=== PATIENT | male | born 1975 | race Caucasian/White ===

== ENCOUNTER 2020-02-04 16:42 | Inpatient (IN) | payer BC, OTHER ==
[2020-02-04] MEDS ORDERED: Sodium Chloride 0.9% 10 ML Syringe FLUSH PRN (17:09)
[2020-02-04] MEDS ORDERED: Sodium Chloride 0.9% 2.5 ML Syringe FLUSH PRN (17:09)
[2020-02-04] MEDS: Sodium Chloride 0.9% 1,000 ML IV ONE (17:20)
--- NOTE | 2020-02-04 17:21 | EDM.PDOC ---
ED HPI GENERAL MEDICAL PROBLEM - General Chief Complaint: Skin Complaint Stated Complaint: POSSIBLE INFECTION DUAL INNER THIGHS Time Seen by Provider: 02/04/20 17:15 Source of Information: Reports: Patient History Limitations: Reports: No Limitations - History of Present Illness INITIAL COMMENTS - FREE TEXT/NARRATIVE: HISTORY AND PHYSICAL: History of present illness: Patient is a 44-year-old male who presents to the emergency room with complaints of an infection to bilateral inner thighs. Approximately 3 days ago he noted sporadic bites to his upper extremities, torso and legs -he was concerned as he does sleep in a motel. After getting out of the shower yesterday he was scratching his inner thighs and feels like his fingernail got caught on his skin. Immediately started having redness, soft tissue swelling and blistering which is progressively gotten worse into today. He has attempted to make his own bandages as the blisters on his inner thighs are weeping. Increased pain with weightbearing and ambulation. This redness does not go into the scrotum, genitalia or rectum. He went to a walk-in clinic who diagnosed him with scabies and started him on Keflex yesterday. The redness/ blistering started BEFORE he started taking the antibiotic. Patient denies any fever, chills, headache, change in vision, syncope or near syncope. Denies any chest pain, back pain, shortness of breath or cough. Denies any abdominal pain, nausea, vomiting, diarrhea, constipation or dysuria. Has not noted any blood in urine or stool. Patient has been eating and drinking appropriately. Review of systems: As per history of present illness and below otherwise all systems reviewed and negative. Past medical history: As per history of present illness and as reviewed below otherwise noncontributory. Surgical history: As per history of present illness and as reviewed below otherwise noncontributory. Social history: See social history for further information Family history: As per history of present illness and as reviewed below otherwise noncontributory. Physical exam: General: Well-developed and well-nourished 44-year-old male. Alert and oriented. Nontoxic-appearing and in no acute distress. HEENT: Atraumatic, normocephalic, pupils equal and reactive bilaterally, negative for conjunctival pallor or scleral icterus, mucous membranes moist, TMs normal bilaterally, throat clear, neck supple, nontender, trachea midline. No drooling or trismus noted. No meningeal signs. No hot potato voice noted. Lungs: Clear to auscultation, breath sounds equal bilaterally, chest nontender. Heart: S1S2, regular rhythm - tachycardic, without overt murmur Abdomen: Soft, nondistended, nontender. Negative for masses or hepatosplenomegaly. Negative for costovertebral tenderness. Pelvis: Stable nontender. Genitourinary: No soft tissue swelling, redness or lesions. Skin: Patient has some pinpoint puncates sporadically throughout the body. The main area of concern is the bilateral medial thighs which are erythematous with some blistering that are honey crusted/weeping. Not hot to the touch but tender. Non-indurated and nonfluctuant. Otherwise remaining skin is intact, warm, dry. Extremities: Atraumatic, moves all extremities per self without difficulty or deficits, negative for cords or calf pain. Neurovascular unremarkable. Neuro: Awake, alert, oriented. Cranial nerves II through XII unremarkable. Cerebellum unremarkable. Motor and sensory unremarkable throughout. Exam nonfocal. Notes: Wound care was done to bilateral thighs, the weeping was cleansed. Nonstick dressings applied. Patient is aware of lab work and the likelihood of him needing to be admitted for IV antibiotics and continued monitoring. He is agreeable to plan of care. Dr Patino was consulted on this case and he is agreeable to keeping patient for further care and management. Patient is aware. VSS. Diagnostics: CBC, CMP, lactic with reflex, blood cultures Therapeutics: IV fluid, vancomycin, Ancef Impression: Cellulitis, bilateral thigh Plan: Admission to Med/Surg Definitive disposition and diagnosis as appropriate pending reevaluation and review of above. Duration: Day(s): bilateral leg Pain Score (Numeric/FACES): 8 - Related Data Allergies Allergy/AdvReac Type Severity Reaction Status Date / Time No Known Allergies Allergy Verified 02/04/20 17:20 ED ROS GENERAL - Review of Systems Review Of Systems: Comprehensive ROS is negative, except as noted in HPI. ED EXAM, SKIN/RASH Exam: See Below (See dictation) Course - Vital Signs Last Recorded V/S: Last Vital Signs Temp 97.4 F 02/04/20 17:10 Pulse 139 H 02/04/20 17:10 Resp 18 02/04/20 17:10 BP 136/87 02/04/20 17:10 Pulse Ox 95 02/04/20 17:10 - Orders/Labs/Meds Orders: Active Orders 24 hr Category Date Time Status Admission Status [Patient Status] [ADT] Stat ADT 02/04/20 18:06 Active EKG 12 Lead [EKG Documentation Completion] [RC] STAT Care 02/04/20 17:21 Active CULTURE BLOOD [BC] Stat Lab 02/04/20 17:12 Received CULTURE BLOOD [BC] Stat Lab 02/04/20 17:22 Received Sodium Chloride 0.9% [Normal Saline] 1,000 ml Med 02/04/20 17:09 Active IV STAT Sodium Chloride 0.9% [Normal Saline] 1,000 ml Med 02/04/20 17:44 Active IV STAT Sodium Chloride 0.9% [Saline Flush] Med 02/04/20 17:09 Active 10 ml FLUSH ASDIRECTED PRN Sodium Chloride 0.9% [Saline Flush] Med 02/04/20 17:09 Active 2.5 ml FLUSH ASDIRECTED PRN Vancomycin 1 gm Med 02/04/20 17:27 Active Sodium Chloride 0.9% [Normal Saline (AdvBag)] 250 ml IV ONETIME Blood Culture x2 Reflex Set [OM.PC] Stat Oth 02/04/20 17:00 Ordered Saline Lock Insert [OM.PC] Stat Oth 02/04/20 17:09 Ordered Medication Orders Sodium Chloride (Normal Saline) 1,000 mls @ 999 mls/hr IV STAT ONE Stop: 02/04/20 18:09 Last Admin: 02/04/20 17:20 Dose: 999 mls/hr Vancomycin HCl 1 gm/ Sodium (Chloride) 250 mls @ 166 mls/hr IV ONETIME ONE Stop: 02/04/20 18:57 Sodium Chloride (Normal Saline) 1,000 mls @ 125 mls/hr IV STAT ONE Stop: 02/05/20 01:43 Sodium Chloride (Saline Flush) 10 ml FLUSH ASDIRECTED PRN PRN Reason: Keep Vein Open Last Admin: 02/04/20 17:26 Dose: 10 ml Sodium Chloride (Saline Flush) 2.5 ml FLUSH ASDIRECTED PRN PRN Reason: Keep Vein Open Last Admin: 02/04/20 17:26 Dose: 2.5 ml Labs: Laboratory Tests 02/04/20 02/04/20 02/04/20 Range/Units 17:12 17:12 17:12 WBC 10.58 (4.0-11.0) K/uL RBC 6.56 H (4.50-5.90) M/uL Hgb 20.4 H (13.0-17.0) g/dL Hct 59.0 H (38.0-50.0) % MCV 89.9 (80.0-98.0) fL MCH 31.1 (27.0-32.0) pg MCHC 34.6 (31.0-37.0) g/dL RDW Std Deviation 44.3 (28.0-62.0) fl RDW Coeff of Karlie 14 (11.0-15.0) % Plt Count 189 (150-400) K/uL MPV 9.80 (7.40-12.00) fL Neut % (Auto) 67.8 (48.0-80.0) % Lymph % (Auto) 20.8 (16.0-40.0) % [place] % (Auto) 6.0 (0.0-15.0) % Eos % (Auto) 5.1 (0.0-7.0) % Baso % (Auto) 0.3 (0.0-1.5) % Neut # (Auto) 7.2 H (1.4-5.7) K/uL Lymph # (Auto) 2.2 (0.6-2.4) K/uL [place] # (Auto) 0.6 (0.0-0.8) K/uL Eos # (Auto) 0.5 (0.0-0.7) K/uL Baso # (Auto) 0.0 (0.0-0.1) K/uL Nucleated RBC % 1.7 /100WBC Nucleated RBCs # 0 K/uL Lactate 1.3 (0.20-2.00) mmol/L Sodium 136 (136-148) mmol/L Potassium 3.5 (3.5-5.1) mmol/L Chloride 99 (98-107) mmol/L Carbon Dioxide 29.2 (21.0-32.0) mmol/L BUN 13 (7.0-18.0) mg/dL Creatinine 1.3 (0.8-1.3) mg/dL Est Cr Clr Drug Dosing 74.87 mL/min Estimated GFR (MDRD) 60.0 ml/min Glucose 111 H (74-106) mg/dL Calcium 8.3 L (8.5-10.1) mg/dL Total Bilirubin 0.9 (0.2-1.0) mg/dL AST 27 (15-37) IU/L ALT 63 (14-63) IU/L Alkaline Phosphatase 112 (46-116) U/L Total Protein 6.6 (6.4-8.2) g/dL Albumin 3.8 (3.4-5.0) g/dL Globulin 2.8 (2.6-4.0) g/dL Albumin/Globulin Ratio 1.4 (0.9-1.6) Meds: Medications Generic Name Dose Route Start Last Admin Trade Name Freq PRN Reason Stop Dose Admin Sodium Chloride 1,000 mls @ 999 mls/hr 02/04/20 17:09 02/04/20 17:20 Normal Saline IV 02/04/20 18:09 999 mls/hr STAT ONE Administration Vancomycin HCl 1 gm/ Sodium 250 mls @ 166 mls/hr 02/04/20 17:27 Chloride IV 02/04/20 18:57 ONETIME ONE Sodium Chloride 1,000 mls @ 125 mls/hr 02/04/20 17:44 Normal Saline IV 02/05/20 01:43 STAT ONE Sodium Chloride 10 ml 02/04/20 17:09 02/04/20 17:26 Saline Flush FLUSH 10 ml ASDIRECTED PRN Administration Keep Vein Open Sodium Chloride 2.5 ml 02/04/20 17:09 02/04/20 17:26 Saline Flush FLUSH 2.5 ml ASDIRECTED PRN Administration Keep Vein Open Discontinued Medications Generic Name Dose Route Start Last Admin Trade Name Freq PRN Reason Stop Dose Admin Cefazolin Sodium/Dextrose 1 gm 50 mls @ 100 mls/hr 02/04/20 17:27 02/04/20 17 :39 / Premix IV 02/04/20 17:56 100 mls/hr ONETIME ONE Administration Departure - Departure Time of Disposition: 18:11 Disposition: Refer to Observation Clinical Impression: Bilateral lower leg cellulitis - Discharge Information Referrals: PCP,None [Primary Care Provider] - Forms: ED Department Discharge Sepsis Event Note - Focused Exam Vital Signs: Vital Signs Temp Pulse Resp BP Pulse Ox 02/04/20 17:10 97.4 F 139 H 18 136/87 95 Date Exam was Performed: 02/04/20 Time Exam was Performed: 18:08 - My Orders Last 24 Hours: My Active Orders 02/04/20 17:00 Blood Culture x2 Reflex Set [OM.PC] Stat 02/04/20 17:09 Sodium Chloride 0.9% [Normal Saline] 1,000 ml IV STAT Sodium Chloride 0.9% [Saline Flush] 10 ml FLUSH ASDIRECTED PRN Sodium Chloride 0.9% [Saline Flush] 2.5 ml FLUSH ASDIRECTED PRN Saline Lock Insert [OM.PC] Stat 02/04/20 17:12 CULTURE BLOOD [BC] Stat 02/04/20 17:21 EKG 12 Lead [EKG Documentation Completion] [RC] STAT 02/04/20 17:22 CULTURE BLOOD [BC] Stat 02/04/20 17:27 Vancomycin 1 gm Sodium Chloride 0.9% [Normal Saline (AdvBag)] 250 ml IV ONETIME 02/04/20 17:44 Sodium Chloride 0.9% [Normal Saline] 1,000 ml IV STAT 02/04/20 18:06 Admission Status [Patient Status] [ADT] Stat - Assessment/Plan Last 24 Hours: My Active Orders 02/04/20 17:00 Blood Culture x2 Reflex Set [OM.PC] Stat 02/04/20 17:09 Sodium Chloride 0.9% [Normal Saline] 1,000 ml IV STAT Sodium Chloride 0.9% [Saline Flush] 10 ml FLUSH ASDIRECTED PRN Sodium Chloride 0.9% [Saline Flush] 2.5 ml FLUSH ASDIRECTED PRN Saline Lock Insert [OM.PC] Stat 02/04/20 17:12 CULTURE BLOOD [BC] Stat 02/04/20 17:21 EKG 12 Lead [EKG Documentation Completion] [RC] STAT 02/04/20 17:22 CULTURE BLOOD [BC] Stat 02/04/20 17:27 Vancomycin 1 gm Sodium Chloride 0.9% [Normal Saline (AdvBag)] 250 ml IV ONETIME 02/04/20 17:44 Sodium Chloride 0.9% [Normal Saline] 1,000 ml IV STAT 02/04/20 18:06 Admission Status [Patient Status] [ADT] Stat
[2020-02-04] MEDS ORDERED: ceFAZolin 1 GM in Premix Bag 1 BAG IV ONE (17:27)
[2020-02-04] MEDS ORDERED: Sodium Chloride 0.9% 1,000 ML IV ONE (17:44)
[2020-02-04 17:52] LABS: CARBON DIOXIDE,CO2 29.2 mmol/L (21.0-32.0); POTASSIUM,K 3.5 mmol/L (3.5-5.1)
--- NOTE | 2020-02-04 18:29 | PCM.SN.2 ---
- Free Text/Narrative Note: Patient was presented to be by the mid-level provider. I have personally independently seen and evaluated the patient at bedside and, if available, have spoken with the with the family. I agree with the history, physical, medical decision making, and plan of treatment as documented by the mid-level provider. I have performed the medical decision making for this patient, including assessing the results of all diagnostic testing and I have instructed the mid- level provider to document the results. In brief, this is a 44-year-old male with no pertinent past medical history presenting with cellulitis. Recently treated for scabies with permethrin. On 2 days of oral antibiotics. Sent into the emergency department due to concern for worsening infection. On exam, he clinically has cellulitis of the bilateral lower extremities, with honey crusting consistent with impetigo. He was initially tachycardic with a heart rate of 140 but is afebrile and well- appearing. CBC shows and erythrocytosis but no leukocytosis. Normal lactate. Electrolytes are reassuring. Blood cultures were drawn x2. Twelve-lead EKG shows sinus tachycardia but no acute ischemia. HR improving with fluids. Does not meet criteria for severe sepsis. Normal lactate, no leukocytosis. Broad- spectrum antibiotics: Vancomycin and Ancef. Patient will be admitted to hospitalist service (Dr. Patino). Please refer to KWAN Oswald's note for further documentation.
--- NOTE | 2020-02-04 18:48 | PCM.HP.2 ---
H&P History of Present Illness - General Date of Service: 02/04/20 Admit Problem/Dx: Admission Diagnosis/Problem Admission Diagnosis/Problem Cellulitis Source of Information: Patient History Limitations: Reports: No Limitations - History of Present Illness Initial Comments - Free Text/Narative: Is a 44-year-old male with no significant past medical history presenting today , to emergency department, after failing outpatient therapy for possible scabies with permethrin and oral antibiotics. Patient endorses staying at a motel x2 weeks in town, and noticing worsening itching and scratching of the lower extremities and left forearm. Denies any fevers, chills, body aches however does notice multiple excoriations and bug bites and was concerned about burrows at various locations of his lower extremities. Denies any other sick contacts or other individuals at the hotel with similar symptoms. Patient was treated outpatient with permethrin and oral antibiotics however was noticed to have worsening redness especially in the right right and left inner thighs; advised to follow-up in the ED. ED course: Found to be tachycardic; given 1 L bolus fluid. Otherwise denies any fevers, chills, body aches. Patient initiated on vancomycin and Ancef. Bedside: Patient denies any worsening of his pruritus; denies any other acute complaints except for bilateral inner thigh discomfort. Denies any recent travel and or sick contacts.. bilateral leg Pain Score (Numeric/FACES): 8 - Related Data Allergies/Adverse Reactions: Allergies Allergy/AdvReac Type Severity Reaction Status Date / Time No Known Allergies Allergy Verified 02/04/20 17:20 Home Medications: Home Meds Doxycycline [Doxycycline Monohydrate] 100 mg PO BID 02/04/20 [History] Loratadine/Pseudoephedrine [Claritin-D 24 Hour Tablet] 1 DAILY 02/04/20 [History ] Permethrin [Permethrin 5% Cream] 60 gm TP DAILY 02/04/20 [History] Past Medical History - Infectious Disease History Infectious Disease History: Reports: Chicken Pox - Past Surgical History HEENT Surgical History: Reports: Adenoidectomy, Tonsillectomy Musculoskeletal Surgical History: Reports: Shoulder Surgery Other Musculoskeletal Surgeries/Procedures:: Achellies tendon repair Social & Family History - Family History Family Medical History: Noncontributory - Tobacco Use Smoking Status *Q: Never Smoker - Recreational Drug Use Recreational Drug Use: No H&P Review of Systems - Review of Systems: Review Of Systems: See Below General: Denies: Fever, Chills HEENT: Reports: No Symptoms Pulmonary: Reports: No Symptoms Cardiovascular: Reports: No Symptoms Gastrointestinal: Reports: No Symptoms Genitourinary: Reports: No Symptoms Musculoskeletal: Reports: No Symptoms Skin: Reports: Rash, Other. Denies: Lumps, Urticaria Psychiatric: Reports: No Symptoms Neurological: Reports: No Symptoms Hematologic/Lymphatic: Reports: No Symptoms Exam - Exam Exam: See Below - Vital Signs Vital Signs: Last Vital Signs Temp 97.4 F 02/04/20 17:10 Pulse 139 H 02/04/20 17:10 Resp 18 02/04/20 17:10 BP 136/87 02/04/20 17:10 Pulse Ox 95 02/04/20 17:10 Weight: 113.398 kg - Exam Quality Assessment: No: Supplemental Oxygen General: Alert, Oriented, Cooperative HEENT: EOMI Neck: Supple, Trachea Midline Lungs: Clear to Auscultation, Normal Respiratory Effort Cardiovascular: Regular Rhythm, Tachycardia GI/Abdominal Exam: Soft, Non-Tender Back Exam: Full Range of Motion, Other (mild erythemaous rahs over left upper back ; +blanching ) Extremities: Non-Tender, No Pedal Edema Skin: Other (b/l inner thighs: large area of honey crusted weeping lesions w. surrounding erythema extending to above thigh and lower extremity. Surrounding areas of multiple excoraitions and what appears to be multiple arthropod bites, no discreet burrowing apprecaited in areas of redenss or between fingers. increased warmth and tenderness appreciated in cellulitic areas. ) Neurological: Cranial Nerves Intact Neuro Extensive - Mental Status: Alert, Oriented x3, Normal Mood/Affect Neuro Extensive - Motor, Sensory, Reflexes: CN II-XII Intact Psychiatric: Alert, Normal Affect - Patient Data Lab Results Last 24 hrs: Laboratory Results - last 24 hr 02/04/20 02/04/20 02/04/20 Range/Units 17:12 17:12 17:12 WBC 10.58 (4.0-11.0) K/uL RBC 6.56 H (4.50-5.90) M/uL Hgb 20.4 H (13.0-17.0) g/dL Hct 59.0 H (38.0-50.0) % MCV 89.9 (80.0-98.0) fL MCH 31.1 (27.0-32.0) pg MCHC 34.6 (31.0-37.0) g/dL RDW Std Deviation 44.3 (28.0-62.0) fl RDW Coeff of Karlie 14 (11.0-15.0) % Plt Count 189 (150-400) K/uL MPV 9.80 (7.40-12.00) fL Neut % (Auto) 67.8 (48.0-80.0) % Lymph % (Auto) 20.8 (16.0-40.0) % [place] % (Auto) 6.0 (0.0-15.0) % Eos % (Auto) 5.1 (0.0-7.0) % Baso % (Auto) 0.3 (0.0-1.5) % Neut # (Auto) 7.2 H (1.4-5.7) K/uL Lymph # (Auto) 2.2 (0.6-2.4) K/uL [place] # (Auto) 0.6 (0.0-0.8) K/uL Eos # (Auto) 0.5 (0.0-0.7) K/uL Baso # (Auto) 0.0 (0.0-0.1) K/uL Nucleated RBC % 1.7 /100WBC Nucleated RBCs # 0 K/uL Lactate 1.3 (0.20-2.00) mmol/L Sodium 136 (136-148) mmol/L Potassium 3.5 (3.5-5.1) mmol/L Chloride 99 (98-107) mmol/L Carbon Dioxide 29.2 (21.0-32.0) mmol/L BUN 13 (7.0-18.0) mg/dL Creatinine 1.3 (0.8-1.3) mg/dL Est Cr Clr Drug Dosing 74.87 mL/min Estimated GFR (MDRD) 60.0 ml/min Glucose 111 H (74-106) mg/dL Calcium 8.3 L (8.5-10.1) mg/dL Total Bilirubin 0.9 (0.2-1.0) mg/dL AST 27 (15-37) IU/L ALT 63 (14-63) IU/L Alkaline Phosphatase 112 (46-116) U/L Total Protein 6.6 (6.4-8.2) g/dL Albumin 3.8 (3.4-5.0) g/dL Globulin 2.8 (2.6-4.0) g/dL Albumin/Globulin Ratio 1.4 (0.9-1.6) Result Diagrams: 02/04/20 17:12 02/04/20 17:12 Sepsis Event Note - Evaluation Sepsis Screening Result: No Definite Risk - Focused Exam Vital Signs: Vital Signs Temp Pulse Resp BP Pulse Ox 02/04/20 17:10 97.4 F 139 H 18 136/87 95 Date Exam was Performed: 02/04/20 Time Exam was Performed: 19:09 Problem List Initiated/Reviewed/Updated: Yes Orders Last 24hrs: Active Orders 24 hr Category Date Time Status Admission Status [Patient Status] [ADT] Stat ADT 02/04/20 18:06 Active CULTURE BLOOD [BC] Stat Lab 02/04/20 17:12 Received CULTURE BLOOD [BC] Stat Lab 02/04/20 17:22 Received Sodium Chloride 0.9% [Normal Saline] 1,000 ml Med 02/04/20 17:44 Active IV STAT Sodium Chloride 0.9% [Saline Flush] Med 02/04/20 17:09 Active 10 ml FLUSH ASDIRECTED PRN Sodium Chloride 0.9% [Saline Flush] Med 02/04/20 17:09 Active 2.5 ml FLUSH ASDIRECTED PRN Vancomycin 1 gm Med 02/04/20 17:27 Active Sodium Chloride 0.9% [Normal Saline (AdvBag)] 250 ml IV ONETIME Blood Culture x2 Reflex Set [OM.PC] Stat Oth 02/04/20 17:00 Ordered Saline Lock Insert [OM.PC] Stat Oth 02/04/20 17:09 Ordered Medication Orders Vancomycin HCl 1 gm/ Sodium (Chloride) 250 mls @ 166 mls/hr IV ONETIME ONE Stop: 02/04/20 18:57 Last Admin: 02/04/20 18:16 Dose: 166 mls/hr Sodium Chloride (Normal Saline) 1,000 mls @ 125 mls/hr IV STAT ONE Stop: 02/05/20 01:43 Last Admin: 02/04/20 18:16 Dose: 125 mls/hr Sodium Chloride (Saline Flush) 10 ml FLUSH ASDIRECTED PRN PRN Reason: Keep Vein Open Last Admin: 02/04/20 17:26 Dose: 10 ml Sodium Chloride (Saline Flush) 2.5 ml FLUSH ASDIRECTED PRN PRN Reason: Keep Vein Open Last Admin: 02/04/20 17:26 Dose: 2.5 ml Assessment/Plan Comment:: Assessment: 1. Cellulitis/Impetigo 2. Multiple Arthropod bites Plan: Admit to observation. Full code. Diet: regular. DVT prophylaxis: 5000 heparin. GI: omeprazole 1. Cellulitis: soft-tissue skin infection most likely secondary to multiple arthropod bites w. overlying excoriations, weeping honey crusted lesions; failing outpatint therapy. ; continue Vancomycin and will start on Zosyn moving forward. BCx ordered. WIll adjust if necessary if erythema and or signs of sepsis develop;. 2. Symptomatic relief: Benadryl q 6 hrs PRN pruritus. Continue to monitor. 3. PMH: low testosterone; receiving weekly testosterone IM injections.
[2020-02-04] MEDS ORDERED: Piperacillin/Tazobactam 3.375 GM in Sodium Chloride 0.9% 50 ML IV SCH (19:00)
[2020-02-04] MEDS: Heparin Sodium 5,000 Units/ML Vial SUBCUT SCH (20:28)
[2020-02-04] MEDS: diphenhydrAMINE 25 MG Cap PO PRN (22:12)
[2020-02-05] MEDS: Piperacillin/Tazobactam 3.375 GM in Sodium Chloride 0.9% 50 ML IV SCH ×4 (04:52→22:00)
[2020-02-05] MEDS: diphenhydrAMINE 25 MG Cap PO PRN ×3 (05:33→21:42)
[2020-02-05] MEDS: Omeprazole 20 MG Cap.CR PO SCH ×2 (07:59→17:00)
[2020-02-05] MEDS: Heparin Sodium 5,000 Units/ML Vial SUBCUT SCH ×2 (09:00→21:42)
[2020-02-05 09:04] LABS: POTASSIUM,K 3.9 mmol/L (3.5-5.1)
[2020-02-05] MEDS ORDERED: Ondansetron 4 MG/2 ML SDV IVPUSH ONE (09:11)
--- NOTE | 2020-02-05 09:26 | PCM.PN ---
<Parisa Escalona - Last Filed: 02/05/20 12:37> - General Info Date of Service: 02/05/20 Subjective Update: Bedside: mentions pruritus improving; having some nausea this AM; denies any fevers, chills and or BA Functional Status: Reports: Pain Controlled - Review of Systems General: Reports: No Symptoms HEENT: Reports: No Symptoms Pulmonary: Reports: No Symptoms Cardiovascular: Reports: No Symptoms Gastrointestinal: Reports: Nausea. Denies: Abdominal Pain, Constipation, Decreased Appetite, Diarrhea Genitourinary: Reports: No Symptoms Musculoskeletal: Reports: No Symptoms Skin: Reports: Rash. Denies: Pruritis Neurological: Reports: No Symptoms Psychiatric: Reports: No Symptoms - Patient Data Vitals - Most Recent: Last Vital Signs Temp 98.6 F 02/05/20 07:45 Pulse 95 02/05/20 07:45 Resp 18 02/05/20 07:45 BP 156/90 H 02/05/20 07:45 Pulse Ox 96 02/05/20 07:45 Weight - Most Recent: 113.398 kg I&O - Last 24 Hours: Intake & Output 02/04/20 02/05/20 02/05/20 22:59 06:59 14:59 Intake Total 200 Balance 200 Lab Results Last 24 Hours: Laboratory Results - last 24 hr 02/04/20 02/04/20 02/04/20 Range/Units 17:12 17:12 17:12 WBC 10.58 (4.0-11.0) K/uL RBC 6.56 H (4.50-5.90) M/uL Hgb 20.4 H (13.0-17.0) g/dL Hct 59.0 H (38.0-50.0) % MCV 89.9 (80.0-98.0) fL MCH 31.1 (27.0-32.0) pg MCHC 34.6 (31.0-37.0) g/dL RDW Std Deviation 44.3 (28.0-62.0) fl RDW Coeff of Karlie 14 (11.0-15.0) % Plt Count 189 (150-400) K/uL MPV 9.80 (7.40-12.00) fL Neut % (Auto) 67.8 (48.0-80.0) % Lymph % (Auto) 20.8 (16.0-40.0) % Ray % (Auto) 6.0 (0.0-15.0) % Eos % (Auto) 5.1 (0.0-7.0) % Baso % (Auto) 0.3 (0.0-1.5) % Neut # (Auto) 7.2 H (1.4-5.7) K/uL Lymph # (Auto) 2.2 (0.6-2.4) K/uL Ray # (Auto) 0.6 (0.0-0.8) K/uL Eos # (Auto) 0.5 (0.0-0.7) K/uL Baso # (Auto) 0.0 (0.0-0.1) K/uL Nucleated RBC % 1.7 /100WBC Nucleated RBCs # 0 K/uL Lactate 1.3 (0.20-2.00) mmol/L Sodium 136 (136-148) mmol/L Potassium 3.5 (3.5-5.1) mmol/L Chloride 99 (98-107) mmol/L Carbon Dioxide 29.2 (21.0-32.0) mmol/L BUN 13 (7.0-18.0) mg/dL Creatinine 1.3 (0.8-1.3) mg/dL Est Cr Clr Drug Dosing 74.87 mL/min Estimated GFR (MDRD) 60.0 ml/min Glucose 111 H (74-106) mg/dL Calcium 8.3 L (8.5-10.1) mg/dL Total Bilirubin 0.9 (0.2-1.0) mg/dL AST 27 (15-37) IU/L ALT 63 (14-63) IU/L Alkaline Phosphatase 112 (46-116) U/L Total Protein 6.6 (6.4-8.2) g/dL Albumin 3.8 (3.4-5.0) g/dL Globulin 2.8 (2.6-4.0) g/dL Albumin/Globulin Ratio 1.4 (0.9-1.6) 02/05/20 02/05/20 Range/Units 08:35 08:35 WBC 12.70 H (4.0-11.0) K/uL RBC 6.01 H (4.50-5.90) M/uL Hgb 18.9 H (13.0-17.0) g/dL Hct 54.8 H (38.0-50.0) % MCV 91.2 (80.0-98.0) fL MCH 31.4 (27.0-32.0) pg MCHC 34.5 (31.0-37.0) g/dL RDW Std Deviation 45.0 (28.0-62.0) fl RDW Coeff of Karlie 14 (11.0-15.0) % Plt Count 166 (150-400) K/uL MPV 9.40 (7.40-12.00) fL Neut % (Auto) 77.0 (48.0-80.0) % Lymph % (Auto) 9.6 L (16.0-40.0) % Ray % (Auto) 9.9 (0.0-15.0) % Eos % (Auto) 3.3 (0.0-7.0) % Baso % (Auto) 0.2 (0.0-1.5) % Neut # (Auto) 9.8 H (1.4-5.7) K/uL Lymph # (Auto) 1.2 (0.6-2.4) K/uL Ray # (Auto) 1.3 H (0.0-0.8) K/uL Eos # (Auto) 0.4 (0.0-0.7) K/uL Baso # (Auto) 0.0 (0.0-0.1) K/uL Nucleated RBC % 0.0 /100WBC Nucleated RBCs # 0 K/uL Lactate (0.20-2.00) mmol/L Sodium 140 (136-148) mmol/L Potassium 3.9 (3.5-5.1) mmol/L Chloride 102 (98-107) mmol/L Carbon Dioxide 30.0 (21.0-32.0) mmol/L BUN 14 (7.0-18.0) mg/dL Creatinine 1.5 H (0.8-1.3) mg/dL Est Cr Clr Drug Dosing 64.89 mL/min Estimated GFR (MDRD) 50.8 ml/min Glucose 111 H (74-106) mg/dL Calcium 7.9 L (8.5-10.1) mg/dL Total Bilirubin 0.9 (0.2-1.0) mg/dL AST 20 (15-37) IU/L ALT 46 (14-63) IU/L Alkaline Phosphatase 95 (46-116) U/L Total Protein 5.8 L (6.4-8.2) g/dL Albumin 3.3 L (3.4-5.0) g/dL Globulin 2.5 L (2.6-4.0) g/dL Albumin/Globulin Ratio 1.3 (0.9-1.6) Med Orders - Current: Current Medications Diphenhydramine HCl (Benadryl) 25 mg PO Q6H PRN PRN Reason: Itching Last Admin: 02/05/20 05:33 Dose: 25 mg Heparin Sodium (Porcine) (Heparin Sodium) 5,000 units SUBCUT BID [facility] Last Admin: 02/05/20 09:00 Dose: 5,000 units Vancomycin HCl 1.25 gm/ Sodium (Chloride) 250 mls @ 166.667 mls/hr IV Q8H [facility] Last Admin: 02/05/20 08:59 Dose: 166.667 mls/hr Piperacillin Sod/Tazobactam (Sod 3.375 gm/ Sodium Chloride) 50 mls @ 100 mls/ hr IV Q6H [facility] Last Admin: 02/05/20 04:52 Dose: 100 mls/hr Omeprazole (Omeprazole) 20 mg PO BIDAC [facility] Last Admin: 02/05/20 07:59 Dose: 20 mg Ondansetron HCl (Zofran) 8 mg IVPUSH ONETIME ONE Stop: 02/05/20 09:12 Sodium Chloride (Saline Flush) 10 ml FLUSH ASDIRECTED PRN PRN Reason: Keep Vein Open Last Admin: 02/04/20 17:26 Dose: 10 ml Sodium Chloride (Saline Flush) 2.5 ml FLUSH ASDIRECTED PRN PRN Reason: Keep Vein Open Last Admin: 02/04/20 17:26 Dose: 2.5 ml Vancomycin HCl (Pharmacy To Dose - Vancomycin) 0 dose .XX ASDIRECTED [facility] Discontinued Medications Sodium Chloride (Normal Saline) 1,000 mls @ 999 mls/hr IV STAT ONE Stop: 02/04/20 18:09 Last Admin: 02/04/20 17:20 Dose: 999 mls/hr Cefazolin Sodium/Dextrose 1 gm (/ Premix) 50 mls @ 100 mls/hr IV ONETIME ONE Stop: 02/04/20 17:56 Last Admin: 02/04/20 17:39 Dose: 100 mls/hr Vancomycin HCl 1 gm/ Sodium (Chloride) 250 mls @ 166 mls/hr IV ONETIME ONE Stop: 02/04/20 18:57 Last Admin: 02/04/20 18:16 Dose: 166 mls/hr Sodium Chloride (Normal Saline) 1,000 mls @ 125 mls/hr IV STAT ONE Stop: 02/05/20 01:43 Last Admin: 02/04/20 18:16 Dose: 125 mls/hr Piperacillin Sod/Tazobactam (Sod 3.375 gm/ Sodium Chloride) 50 mls @ 100 mls/ hr IV Q6H [facility] Last Admin: 02/04/20 20:29 Dose: 100 mls/hr - Exam Quality Assessment: Supplemental Oxygen General: Alert, Oriented HEENT: Pupils Equal, EOMI, Mucous Membr. Moist/[place] Neck: Supple Lungs: Clear to Auscultation, Normal Respiratory Effort Cardiovascular: Regular Rate, Regular Rhythm GI/Abdominal Exam: Soft, Non-Tender Back Exam: Normal Inspection Extremities: Normal Inspection Skin: Other (impetigo/cellulits of lower extremity ; unchanged from yesterday; has not gone past line of demarcation; no increaed warmth or inreased weping; gauze placed back over wound ) Wound/Incisions: Drainage, Erythema Neurological: No New Focal Deficit Psy/Mental Status: Alert, Normal Affect, Normal Mood Sepsis Event Note - Evaluation Sepsis Screening Result: No Definite Risk - Focused Exam Vital Signs: Vital Signs Temp Pulse Resp BP Pulse Ox 02/05/20 07:45 98.6 F 95 18 156/90 H 96 02/05/20 04:00 99.9 F 96 18 145/91 H 96 02/05/20 00:00 98.1 F 92 18 133/86 95 Date Exam was Performed: 02/05/20 Time Exam was Performed: 12:37 - Problem List Review Problem List Initiated/Reviewed/Updated: Yes - My Orders Last 24 Hours: My Active Orders 02/04/20 19:00 Pharmacy to Dose - Vancomycin See Dose Instructions .XX ASDIRECTED diphenhydrAMINE [Benadryl] 25 mg PO Q6H PRN 02/04/20 21:00 Heparin Sodium 5,000 units SUBCUT BID 02/05/20 04:00 Piperacillin/Tazobactam [Piperacil-Tazobact] 3.375 gm Sodium Chloride 0.9% [ Normal Saline] 50 ml IV Q6H 02/05/20 07:30 Omeprazole 20 mg PO BIDAC 02/05/20 09:11 Ondansetron [Zofran] 8 mg IVPUSH ONETIME ONE 02/05/20 Breakfast Regular Diet [DIET] - Plan Plan:: Assessment: 1. Cellulitis/Impetigo w. mild Leukocytosis 2. Multiple Arthropod bites Plan: Admit to observation. Full code. Diet: regular. DVT prophylaxis: 5000 heparin. GI: omeprazole 1. Cellulitis: soft-tissue skin infection most likely secondary to multiple arthropod bites w. overlying excoriations, weeping honey crusted lesions; failing outpatient therapy. ; continue Vancomycin and will start on Zosyn moving forward. BCx ordered. WIll adjust if necessary if erythema and or signs of sepsis develop;. Leukocytosis: on IV abx; no signs of toxemia/sepsis this AM 2. Symptomatic relief: Benadryl q 6 hrs PRN pruritus. Continue to monitor. Will add on Zofran for nausea 3. PMH: low testosterone; receiving weekly testosterone IM injections. <Diallo Tellez - Last Filed: 02/07/20 23:50> - Patient Data Vitals - Most Recent: Last Vital Signs Temp 37 C 02/07/20 15:44 Pulse 98 02/07/20 15:44 Resp 18 02/07/20 15:44 BP 145/82 H 02/07/20 15:44 Pulse Ox 97 02/07/20 15:44 I&O - Last 24 Hours: Intake & Output 02/07/20 02/07/20 02/08/20 14:59 22:59 06:59 Intake Total 537 750 Output Total 1100 Balance 537 -350 Lab Results Last 24 Hours: Laboratory Results - last 24 hr 02/07/20 02/07/20 Range/Units 06:05 06:05 WBC 8.29 (4.0-11.0) K/uL RBC 5.48 (4.50-5.90) M/uL Hgb 16.9 (13.0-17.0) g/dL Hct 50.4 H (38.0-50.0) % MCV 92.0 (80.0-98.0) fL MCH 30.8 (27.0-32.0) pg MCHC 33.5 (31.0-37.0) g/dL RDW Std Deviation 46.4 (28.0-62.0) fl RDW Coeff of Karlie 14 (11.0-15.0) % Plt Count 166 (150-400) K/uL MPV 9.20 (7.40-12.00) fL Neut % (Auto) 66.7 (48.0-80.0) % Lymph % (Auto) 18.6 (16.0-40.0) % Ray % (Auto) 9.2 (0.0-15.0) % Eos % (Auto) 5.3 (0.0-7.0) % Baso % (Auto) 0.2 (0.0-1.5) % Neut # (Auto) 5.5 (1.4-5.7) K/uL Lymph # (Auto) 1.5 (0.6-2.4) K/uL Ray # (Auto) 0.8 (0.0-0.8) K/uL Eos # (Auto) 0.4 (0.0-0.7) K/uL Baso # (Auto) 0.0 (0.0-0.1) K/uL Nucleated RBC % 0.0 /100WBC Nucleated RBCs # 0 K/uL Sodium 143 (136-148) mmol/L Potassium 4.0 (3.5-5.1) mmol/L Chloride 106 (98-107) mmol/L Carbon Dioxide 31.3 (21.0-32.0) mmol/L BUN 12 (7.0-18.0) mg/dL Creatinine 1.8 H (0.8-1.3) mg/dL Est Cr Clr Drug Dosing 54.07 mL/min Estimated GFR (MDRD) 41.2 ml/min Glucose 100 (74-106) mg/dL Calcium 8.0 L (8.5-10.1) mg/dL Phosphorus 3.1 (2.6-4.7) mg/dL Magnesium 1.7 L (1.8-2.4) mg/dL Chidi Results Last 24 Hours: Microbiology 02/04/20 17:22 Aerobic Blood Culture - Preliminary Blood - Venous - Lab Draw NO GROWTH AFTER 3 DAYS Anaerobic Blood Culture - Preliminary NO GROWTH AFTER 3 DAYS 02/04/20 17:12 Aerobic Blood Culture - Preliminary Blood - Venous NO GROWTH AFTER 3 DAYS Anaerobic Blood Culture - Preliminary NO GROWTH AFTER 3 DAYS Med Orders - Current: Current Medications Discontinued Medications Diphenhydramine HCl (Benadryl) 25 mg PO Q6H PRN PRN Reason: Itching Last Admin: 02/07/20 07:55 Dose: 25 mg Heparin Sodium (Porcine) (Heparin Sodium) 5,000 units SUBCUT BID [facility] Last Admin: 02/07/20 09:41 Dose: 5,000 units Sodium Chloride (Normal Saline) 1,000 mls @ 999 mls/hr IV STAT ONE Stop: 02/04/20 18:09 Last Admin: 02/05/20 21:51 Dose: 999 mls/hr Cefazolin Sodium/Dextrose 1 gm (/ Premix) 50 mls @ 100 mls/hr IV ONETIME ONE Stop: 02/04/20 17:56 Last Admin: 02/04/20 17:39 Dose: 100 mls/hr Vancomycin HCl 1 gm/ Sodium (Chloride) 250 mls @ 166 mls/hr IV ONETIME ONE Stop: 02/04/20 18:57 Last Admin: 02/04/20 18:16 Dose: 166 mls/hr Sodium Chloride (Normal Saline) 1,000 mls @ 125 mls/hr IV STAT ONE Stop: 02/05/20 01:43 Last Admin: 02/04/20 18:16 Dose: 125 mls/hr Piperacillin Sod/Tazobactam (Sod 3.375 gm/ Sodium Chloride) 50 mls @ 100 mls/ hr IV Q6H [facility] Last Admin: 02/04/20 20:29 Dose: 100 mls/hr Vancomycin HCl 1.25 gm/ Sodium (Chloride) 250 mls @ 166.667 mls/hr IV Q8H [facility] Last Admin: 02/06/20 22:25 Dose: Not Given Piperacillin Sod/Tazobactam (Sod 3.375 gm/ Sodium Chloride) 50 mls @ 100 mls/ hr IV Q6H [facility] Last Admin: 02/06/20 09:55 Dose: 100 mls/hr Sodium Chloride (Normal Saline) 1,000 mls @ 100 mls/hr IV STAT ONE Stop: 02/05/20 19:27 Last Admin: 02/05/20 10:06 Dose: 100 mls/hr Lactated Ringer's (Ringers, Lactated) 1,000 mls @ 125 mls/hr IV ASDIRECTED [facility] Last Admin: 02/07/20 07:46 Dose: 125 mls/hr Vancomycin HCl 1.25 gm/ Sodium (Chloride) 250 mls @ 166.667 mls/hr IV Q12H [facility] Last Admin: 02/07/20 07:51 Dose: 166.667 mls/hr Magnesium Sulfate 2 gm/ Premix 50 mls @ 50 mls/hr IV ONETIME ONE Stop: 02/07/20 08:37 Last Admin: 02/07/20 09:29 Dose: 50 mls/hr Omeprazole (Omeprazole) 20 mg PO BIDAC [facility] Last Admin: 02/07/20 06:38 Dose: 20 mg Ondansetron HCl (Zofran) 8 mg IVPUSH ONETIME ONE Stop: 02/05/20 09:12 Last Admin: 02/05/20 10:10 Dose: 8 mg Ondansetron HCl (Zofran) 4 mg IVPUSH Q6H PRN PRN Reason: Nausea/Vomiting Sodium Chloride (Saline Flush) 10 ml FLUSH ASDIRECTED PRN PRN Reason: Keep Vein Open Last Admin: 02/04/20 17:26 Dose: 10 ml Sodium Chloride (Saline Flush) 2.5 ml FLUSH ASDIRECTED PRN PRN Reason: Keep Vein Open Last Admin: 02/04/20 17:26 Dose: 2.5 ml Vancomycin HCl (Pharmacy To Dose - Vancomycin) 0 dose .XX ASDIRECTED [facility] Sepsis Event Note - Focused Exam Vital Signs: Vital Signs Temp Pulse Resp BP Pulse Ox 02/07/20 15:44 37 C 98 18 145/82 H 97 Date Exam was Performed: 02/07/20 Time Exam was Performed: 23:50 - Problem List & Annotations (1) Bilateral lower leg cellulitis SNOMED Code(s): 835759568 Code(s): L03.116 - CELLULITIS OF LEFT LOWER LIMB; L03.115 - CELLULITIS OF RIGHT LOWER LIMB Status: Acute - Plan Plan:: I have seen and evaluated the patient and agree with the residents note unless specified in my note
[2020-02-05] MEDS ORDERED: Sodium Chloride 0.9% 1,000 ML IV ONE (09:28)
[2020-02-05] MEDS ORDERED: Ondansetron 4 MG/2 ML SDV IVPUSH PRN (19:05)
[2020-02-05] MEDS: Sodium Chloride 0.9% 1,000 ML IV ONE (21:51)
[2020-02-06] MEDS: Piperacillin/Tazobactam 3.375 GM in Sodium Chloride 0.9% 50 ML IV SCH ×2 (04:10→09:55)
[2020-02-06] MEDS: Omeprazole 20 MG Cap.CR PO SCH ×2 (06:30→16:22)
[2020-02-06 06:54] LABS: POTASSIUM,K 3.7 mmol/L (3.5-5.1)
[2020-02-06] MEDS: Heparin Sodium 5,000 Units/ML Vial SUBCUT SCH ×2 (08:18→20:29)
[2020-02-06] MEDS: diphenhydrAMINE 25 MG Cap PO PRN ×2 (10:18→16:22)
--- NOTE | 2020-02-06 11:04 | PCM.PN ---
- General Info Date of Service: 02/06/20 Admission Dx/Problem (Free Text): Admission Diagnosis/Problem Admission Diagnosis/Problem Cellulitis Subjective Update: No acute complaints, denies any fevers, chills - Review of Systems General: Denies: Fever, Weakness, Fatigue Pulmonary: Denies: Shortness of Breath, Pleuritic Chest Pain Cardiovascular: Denies: Chest Pain, Palpitations Gastrointestinal: Denies: Abdominal Pain, Constipation, Decreased Appetite Genitourinary: Denies: Dysuria, Frequency, Burning Musculoskeletal: Denies: Neck Pain, Shoulder Pain, Arm Pain Skin: Reports: Pruritis, Rash Neurological: Denies: Confusion, Dizziness, Headache - Patient Data Vitals - Most Recent: Last Vital Signs Temp 36.8 C 02/06/20 07:10 Pulse 92 02/06/20 07:10 Resp 17 02/06/20 07:10 BP 153/96 H 02/06/20 07:10 Pulse Ox 95 02/06/20 07:10 Weight - Most Recent: 113.398 kg I&O - Last 24 Hours: Intake & Output 02/05/20 02/06/20 02/06/20 22:59 06:59 14:59 Intake Total 1125 1577 300 Output Total 800 700 Balance 325 877 300 Lab Results Last 24 Hours: Laboratory Results - last 24 hr 02/05/20 02/06/20 02/06/20 Range/Units 15:36 06:05 06:05 WBC 9.61 (4.0-11.0) K/uL RBC 5.71 (4.50-5.90) M/uL Hgb 17.5 H (13.0-17.0) g/dL Hct 52.3 H (38.0-50.0) % MCV 91.6 (80.0-98.0) fL MCH 30.6 (27.0-32.0) pg MCHC 33.5 (31.0-37.0) g/dL RDW Std Deviation 45.8 (28.0-62.0) fl RDW Coeff of Karlie 14 (11.0-15.0) % Plt Count 162 (150-400) K/uL MPV 9.40 (7.40-12.00) fL Neut % (Auto) 71.4 (48.0-80.0) % Lymph % (Auto) 14.3 L (16.0-40.0) % Shannon % (Auto) 10.0 (0.0-15.0) % Eos % (Auto) 4.1 (0.0-7.0) % Baso % (Auto) 0.2 (0.0-1.5) % Neut # (Auto) 6.9 H (1.4-5.7) K/uL Lymph # (Auto) 1.4 (0.6-2.4) K/uL Shannon # (Auto) 1.0 H (0.0-0.8) K/uL Eos # (Auto) 0.4 (0.0-0.7) K/uL Baso # (Auto) 0.0 (0.0-0.1) K/uL Nucleated RBC % 0.0 /100WBC Nucleated RBCs # 0 K/uL Sodium 143 (136-148) mmol/L Potassium 3.7 (3.5-5.1) mmol/L Chloride 105 (98-107) mmol/L Carbon Dioxide 30.0 (21.0-32.0) mmol/L BUN 14 (7.0-18.0) mg/dL Creatinine 1.9 H (0.8-1.3) mg/dL Est Cr Clr Drug Dosing 51.23 mL/min Estimated GFR (MDRD) 38.7 ml/min Glucose 94 (74-106) mg/dL Calcium 7.6 L (8.5-10.1) mg/dL Total Bilirubin 0.9 (0.2-1.0) mg/dL AST 15 (15-37) IU/L ALT 34 (14-63) IU/L Alkaline Phosphatase 78 (46-116) U/L Total Protein 5.6 L (6.4-8.2) g/dL Albumin 2.8 L (3.4-5.0) g/dL Globulin 2.8 (2.6-4.0) g/dL Albumin/Globulin Ratio 1.0 (0.9-1.6) Vancomycin Trough 15.4 H (5.0-10.0) ug/mL Chidi Results Last 24 Hours: Microbiology 02/04/20 17:22 Aerobic Blood Culture - Preliminary Blood - Venous - Lab Draw NO GROWTH AFTER 1 DAY Anaerobic Blood Culture - Preliminary NO GROWTH AFTER 1 DAY 02/04/20 17:12 Aerobic Blood Culture - Preliminary Blood - Venous NO GROWTH AFTER 1 DAY Anaerobic Blood Culture - Preliminary NO GROWTH AFTER 1 DAY Med Orders - Current: Current Medications Diphenhydramine HCl (Benadryl) 25 mg PO Q6H PRN PRN Reason: Itching Last Admin: 02/06/20 10:18 Dose: 25 mg Heparin Sodium (Porcine) (Heparin Sodium) 5,000 units SUBCUT BID [facility] Last Admin: 02/06/20 08:18 Dose: 5,000 units Vancomycin HCl 1.25 gm/ Sodium (Chloride) 250 mls @ 166.667 mls/hr IV Q8H [facility] Last Admin: 02/06/20 08:13 Dose: 166.667 mls/hr Lactated Ringer's (Ringers, Lactated) 1,000 mls @ 125 mls/hr IV ASDIRECTED [facility] Omeprazole (Omeprazole) 20 mg PO BIDAC [facility] Last Admin: 02/06/20 06:30 Dose: 20 mg Ondansetron HCl (Zofran) 4 mg IVPUSH Q6H PRN PRN Reason: Nausea/Vomiting Sodium Chloride (Saline Flush) 10 ml FLUSH ASDIRECTED PRN PRN Reason: Keep Vein Open Last Admin: 02/04/20 17:26 Dose: 10 ml Sodium Chloride (Saline Flush) 2.5 ml FLUSH ASDIRECTED PRN PRN Reason: Keep Vein Open Last Admin: 02/04/20 17:26 Dose: 2.5 ml Vancomycin HCl (Pharmacy To Dose - Vancomycin) 0 dose .XX ASDIRECTED [facility] Discontinued Medications Sodium Chloride (Normal Saline) 1,000 mls @ 999 mls/hr IV STAT ONE Stop: 02/04/20 18:09 Last Admin: 02/05/20 21:51 Dose: 999 mls/hr Cefazolin Sodium/Dextrose 1 gm (/ Premix) 50 mls @ 100 mls/hr IV ONETIME ONE Stop: 02/04/20 17:56 Last Admin: 02/04/20 17:39 Dose: 100 mls/hr Vancomycin HCl 1 gm/ Sodium (Chloride) 250 mls @ 166 mls/hr IV ONETIME ONE Stop: 02/04/20 18:57 Last Admin: 02/04/20 18:16 Dose: 166 mls/hr Sodium Chloride (Normal Saline) 1,000 mls @ 125 mls/hr IV STAT ONE Stop: 02/05/20 01:43 Last Admin: 02/04/20 18:16 Dose: 125 mls/hr Piperacillin Sod/Tazobactam (Sod 3.375 gm/ Sodium Chloride) 50 mls @ 100 mls/ hr IV Q6H [facility] Last Admin: 02/04/20 20:29 Dose: 100 mls/hr Piperacillin Sod/Tazobactam (Sod 3.375 gm/ Sodium Chloride) 50 mls @ 100 mls/ hr IV Q6H [facility] Last Admin: 02/06/20 09:55 Dose: 100 mls/hr Sodium Chloride (Normal Saline) 1,000 mls @ 100 mls/hr IV STAT ONE Stop: 02/05/20 19:27 Last Admin: 02/05/20 10:06 Dose: 100 mls/hr Ondansetron HCl (Zofran) 8 mg IVPUSH ONETIME ONE Stop: 02/05/20 09:12 Last Admin: 02/05/20 10:10 Dose: 8 mg - Exam General: Alert, Oriented Neck: Supple, Trachea Midline Lungs: Clear to Auscultation, Normal Respiratory Effort Cardiovascular: Regular Rate, Regular Rhythm, No Murmurs GI/Abdominal Exam: Normal Bowel Sounds, Soft, Non-Tender Extremities: Normal Inspection, Normal Range of Motion Peripheral Pulses: 3+: Dorsalis Pedis (L), Dorsalis Pedis (R) Skin: Rash, Ecchymosis Wound/Incisions: Healing Well, Drainage, Erythema, Erythema Improving Sepsis Event Note - Evaluation Sepsis Screening Result: Sepsis Risk - Focused Exam Vital Signs: Vital Signs Temp Pulse Resp BP Pulse Ox 02/06/20 07:10 36.8 C 92 17 153/96 H 95 02/06/20 04:00 36.2 C 95 16 130/91 H 96 02/05/20 23:53 35 C L 100 20 131/85 94 L Date Exam was Performed: 02/06/20 Time Exam was Performed: 13:59 - Problem List & Annotations (1) Bilateral lower leg cellulitis SNOMED Code(s): 479243565 Code(s): L03.116 - CELLULITIS OF LEFT LOWER LIMB; L03.115 - CELLULITIS OF RIGHT LOWER LIMB Status: Acute Current Visit: Yes - Problem List Review Problem List Initiated/Reviewed/Updated: Yes - My Orders Last 24 Hours: My Active Orders 02/06/20 11:00 Lactated Ringers [Ringers, Lactated] 1,000 ml IV ASDIRECTED - Plan Plan:: Assessment/Plan: Cellulitis: soft-tissue skin infection most likely secondary to multiple arthropod bites w. overlying excoriations, weeping honey crusted lesions; failing outpatient therapy. ; today WBC count has resolved, erythema is resolving, continue Vancomycin, stop Zosyn f/u on blood cultures Start IVF as [employer] bumped up, daily BMP cont Benadryl q 6 hrs PRN pruritus. Continue to monitor. PMH: low testosterone; receiving weekly testosterone IM injections.
[2020-02-06] MEDS: Lactated Ringers 1,000 ML IV SCH (11:45)
[2020-02-07] MEDS: diphenhydrAMINE 25 MG Cap PO PRN ×2 (01:50→07:55)
[2020-02-07 06:36] LABS: CARBON DIOXIDE,CO2 31.3 mmol/L (21.0-32.0)
[2020-02-07] MEDS: Omeprazole 20 MG Cap.CR PO SCH (06:38)
[2020-02-07] MEDS ORDERED: Magnesium Sulfate/Water 2 GM in Premix Bag 1 BAG IV ONE (07:38)
[2020-02-07] MEDS: Lactated Ringers 1,000 ML IV SCH (07:46)
--- NOTE | 2020-02-07 08:57 | PCM.PN ---
- General Info Date of Service: 02/07/20 Subjective Update: Decreased pruritus; mentions weeping lesions improving ; no other acute complaints this AM Functional Status: Reports: Pain Controlled - Review of Systems General: Denies: Fever, Chills HEENT: Reports: No Symptoms Pulmonary: Reports: No Symptoms Cardiovascular: Reports: No Symptoms Gastrointestinal: Reports: No Symptoms Genitourinary: Reports: No Symptoms Musculoskeletal: Reports: No Symptoms Skin: Reports: Dryness, Rash (cellulits and impetigo improving ). Denies: Pruritis Neurological: Reports: No Symptoms Psychiatric: Reports: No Symptoms - Patient Data Vitals - Most Recent: Last Vital Signs Temp 97.9 F 02/07/20 04:10 Pulse 103 H 02/07/20 04:10 Resp 16 02/07/20 04:10 BP 142/87 H 02/07/20 04:10 Pulse Ox 97 02/07/20 04:10 Weight - Most Recent: 113.398 kg I&O - Last 24 Hours: Intake & Output 02/06/20 02/07/20 02/07/20 22:59 06:59 14:59 Intake Total 1325 500 Output Total 950 750 Balance 375 -250 Lab Results Last 24 Hours: Laboratory Results - last 24 hr 02/06/20 02/07/20 02/07/20 Range/Units 15:35 06:05 06:05 WBC 8.29 (4.0-11.0) K/uL RBC 5.48 (4.50-5.90) M/uL Hgb 16.9 (13.0-17.0) g/dL Hct 50.4 H (38.0-50.0) % MCV 92.0 (80.0-98.0) fL MCH 30.8 (27.0-32.0) pg MCHC 33.5 (31.0-37.0) g/dL RDW Std Deviation 46.4 (28.0-62.0) fl RDW Coeff of Karlie 14 (11.0-15.0) % Plt Count 166 (150-400) K/uL MPV 9.20 (7.40-12.00) fL Neut % (Auto) 66.7 (48.0-80.0) % Lymph % (Auto) 18.6 (16.0-40.0) % [place] % (Auto) 9.2 (0.0-15.0) % Eos % (Auto) 5.3 (0.0-7.0) % Baso % (Auto) 0.2 (0.0-1.5) % Neut # (Auto) 5.5 (1.4-5.7) K/uL Lymph # (Auto) 1.5 (0.6-2.4) K/uL [place] # (Auto) 0.8 (0.0-0.8) K/uL Eos # (Auto) 0.4 (0.0-0.7) K/uL Baso # (Auto) 0.0 (0.0-0.1) K/uL Nucleated RBC % 0.0 /100WBC Nucleated RBCs # 0 K/uL Sodium 143 (136-148) mmol/L Potassium 4.0 (3.5-5.1) mmol/L Chloride 106 (98-107) mmol/L Carbon Dioxide 31.3 (21.0-32.0) mmol/L BUN 12 (7.0-18.0) mg/dL Creatinine 1.8 H (0.8-1.3) mg/dL Est Cr Clr Drug Dosing 54.07 mL/min Estimated GFR (MDRD) 41.2 ml/min Glucose 100 (74-106) mg/dL Calcium 8.0 L (8.5-10.1) mg/dL Phosphorus 3.1 (2.6-4.7) mg/dL Magnesium 1.7 L (1.8-2.4) mg/dL Vancomycin Trough 19.0 H (5.0-10.0) ug/mL Chidi Results Last 24 Hours: Microbiology 02/04/20 17:22 Aerobic Blood Culture - Preliminary Blood - Venous - Lab Draw NO GROWTH AFTER 2 DAYS Anaerobic Blood Culture - Preliminary NO GROWTH AFTER 2 DAYS 02/04/20 17:12 Aerobic Blood Culture - Preliminary Blood - Venous NO GROWTH AFTER 2 DAYS Anaerobic Blood Culture - Preliminary NO GROWTH AFTER 2 DAYS Med Orders - Current: Current Medications Diphenhydramine HCl (Benadryl) 25 mg PO Q6H PRN PRN Reason: Itching Last Admin: 02/07/20 07:55 Dose: 25 mg Heparin Sodium (Porcine) (Heparin Sodium) 5,000 units SUBCUT BID [facility] Last Admin: 06/07/20 20:29 Dose: 5,000 units Vancomycin HCl 1.25 gm/ Sodium (Chloride) 250 mls @ 166.667 mls/hr IV Q12H [facility] Last Admin: 02/07/20 07:51 Dose: 166.667 mls/hr Omeprazole (Omeprazole) 20 mg PO BIDAC [facility] Last Admin: 02/07/20 06:38 Dose: 20 mg Ondansetron HCl (Zofran) 4 mg IVPUSH Q6H PRN PRN Reason: Nausea/Vomiting Sodium Chloride (Saline Flush) 10 ml FLUSH ASDIRECTED PRN PRN Reason: Keep Vein Open Last Admin: 02/04/20 17:26 Dose: 10 ml Sodium Chloride (Saline Flush) 2.5 ml FLUSH ASDIRECTED PRN PRN Reason: Keep Vein Open Last Admin: 02/04/20 17:26 Dose: 2.5 ml Vancomycin HCl (Pharmacy To Dose - Vancomycin) 0 dose .XX ASDIRECTED [facility] Discontinued Medications Sodium Chloride (Normal Saline) 1,000 mls @ 999 mls/hr IV STAT ONE Stop: 02/04/20 18:09 Last Admin: 02/05/20 21:51 Dose: 999 mls/hr Cefazolin Sodium/Dextrose 1 gm (/ Premix) 50 mls @ 100 mls/hr IV ONETIME ONE Stop: 02/04/20 17:56 Last Admin: 02/04/20 17:39 Dose: 100 mls/hr Vancomycin HCl 1 gm/ Sodium (Chloride) 250 mls @ 166 mls/hr IV ONETIME ONE Stop: 02/04/20 18:57 Last Admin: 02/04/20 18:16 Dose: 166 mls/hr Sodium Chloride (Normal Saline) 1,000 mls @ 125 mls/hr IV STAT ONE Stop: 02/05/20 01:43 Last Admin: 02/04/20 18:16 Dose: 125 mls/hr Piperacillin Sod/Tazobactam (Sod 3.375 gm/ Sodium Chloride) 50 mls @ 100 mls/ hr IV Q6H [facility] Last Admin: 02/04/20 20:29 Dose: 100 mls/hr Vancomycin HCl 1.25 gm/ Sodium (Chloride) 250 mls @ 166.667 mls/hr IV Q8H [facility] Last Admin: 02/06/20 22:25 Dose: Not Given Piperacillin Sod/Tazobactam (Sod 3.375 gm/ Sodium Chloride) 50 mls @ 100 mls/ hr IV Q6H [facility] Last Admin: 02/06/20 09:55 Dose: 100 mls/hr Sodium Chloride (Normal Saline) 1,000 mls @ 100 mls/hr IV STAT ONE Stop: 02/05/20 19:27 Last Admin: 02/05/20 10:06 Dose: 100 mls/hr Lactated Ringer's (Ringers, Lactated) 1,000 mls @ 125 mls/hr IV ASDIRECTED [facility] Last Admin: 02/07/20 07:46 Dose: 125 mls/hr Magnesium Sulfate 2 gm/ Premix 50 mls @ 50 mls/hr IV ONETIME ONE Stop: 02/07/20 08:37 Ondansetron HCl (Zofran) 8 mg IVPUSH ONETIME ONE Stop: 02/05/20 09:12 Last Admin: 02/05/20 10:10 Dose: 8 mg - Exam Quality Assessment: No: Supplemental Oxygen General: Alert, Oriented, Cooperative HEENT: Pupils Equal, EOMI Neck: Supple Lungs: Normal Respiratory Effort, Other (mild lower lung bernard congestion; moving air well tho ) Cardiovascular: Regular Rate, Regular Rhythm GI/Abdominal Exam: Soft, Non-Tender Back Exam: Normal Inspection Extremities: Normal Inspection, Normal Range of Motion Skin: Other (cellulitis: imrovement w. overlying scaling in areas of impetigo; punctate areas of weeping however great improvement since admission ) Wound/Incisions: Healing Well, Drainage (mild ), Erythema Improving Neurological: No New Focal Deficit Psy/Mental Status: Alert, Normal Affect, Normal Mood Sepsis Event Note - Evaluation Sepsis Screening Result: No Definite Risk - Focused Exam Vital Signs: Vital Signs Temp Pulse Resp BP Pulse Ox 02/07/20 04:10 97.9 F 103 H 16 142/87 H 97 02/07/20 00:00 97.7 F 89 18 155/87 H 94 L Date Exam was Performed: 02/07/20 Time Exam was Performed: 08:52 - Problem List Review Problem List Initiated/Reviewed/Updated: Yes - Plan Plan:: Assessment/Plan: Cellulitis: soft-tissue skin infection most likely secondary to multiple arthropod bites w. overlying excoriations, weeping honey crusted lesions; failing outpatient therapy. ; today WBC count has resolved, erythema is resolving, continue Vancomycin, stop Zosyn EDIN: possibly due to abx. have already dc zosyn; marginal imrprovement since yesterday w. IVF; however concerns for fluid-overload f/u on blood cultures Hypomagnesemia: repleted w. 2 grams cont Benadryl q 6 hrs PRN pruritus. Continue to monitor. PMH: low testosterone; receiving weekly testosterone IM injections.
[2020-02-07] MEDS: Heparin Sodium 5,000 Units/ML Vial SUBCUT SCH (09:41)
--- NOTE | 2020-02-07 13:46 | CT ---
CT pelvis Technique: Multiple axial sections through the pelvis were obtained. Reconstructed coronal and sagittal images were reviewed. Findings: Appendix is seen which is normal in size. Increased soft tissue density noted within both buttocks involving subcutaneous fat which is likely incidental. No pelvic mass or adenopathy is seen. Subcutaneous edema is noted within both upper thighs worse on the left side. No fluid collections are seen to indicate soft tissue abscess. Impression: 1. Subcutaneous edema within the upper thighs worse on the left side. 2. No other acute finding appreciated on CT study of the pelvis. No evidence of soft tissue abscess or intrapelvic abscess. Diagnostic code #2 This report was dictated in MDT
--- NOTE | 2020-02-07 13:46 | CT ---
CT left femur Technique: Multiple axial sections of the left femur were obtained. Findings: Diffuse subcutaneous edema and skin thickening is seen within both thighs. Findings are worse on the left side than on the visualized right side. There are no focal fluid collections of abscess being seen. No discrete muscle edema is noted. No fracture is appreciated within the femur. No soft tissue foreign body is appreciated. Impression: 1. Diffuse subcutaneous edema within both thighs, worse on the left side. 2. No additional abnormality is appreciated. Diagnostic code #2 This report was dictated in MDT
--- NOTE | 2020-02-07 14:21 | PCM.DCSUM1 ---
<Parisa Escalona - Last Filed: 02/07/20 15:02> Discharge Summary - Hospital Course Free Text/Narrative:: Discharge summary Consultations:none Procedures:none Hospital course: Patient is a 44-year-old male with no significant past medical history presenting on Friday for increasing cellulitis with impetigo of lower extremity bilateral thighs; patient 3 to 4 days earlier was seen by outpatient provider and provided with doxycycline and permethrin with concerns of bug bites and superimposed cellulitis. Patient was spending 2 weeks at a hotel in [place]; noticed multiple bug bites throughout his body upper and lower extremities and torso; and severe pruritus. Despite taking outpatient medication patient states redness and weeping lesions in the lower extremities were worsening and subsequently proceeded to the ED. On admission patient was started on vancomycin and Zosyn secondary to cellulitis with impetigo; multiple excoriations; and lesions consistent with bug bites noted over upper lower extremities and torso. Patient also required Benadryl every 6 hours for pruritus control. Throughout stay patient white count from 12 had resolved however creatinine did bump up on day prior to discharge. Zosyn was DC'd with a marginal decrease on day of discharge of creatinine of 1.8. Patient otherwise endorsing feeling better and was afebrile throughout this time. Patient advised to notify provider if symptoms of redness, fever, chills, body aches return and or worsen. Advised to follow-up closely with PCP to measure response to p.o. antibiotics and recheck BMP in 2-3 days (recheck creatinine). Patient sent home with Bactrim DS 2 tabs twice daily x5 days and continue Benadryl for pruritus.. Patient requesting discharge and was stable at discharge. Discharge condition:stable Disposition:Home Follow-up: PCP - Discharge Data Discharge Date: 02/07/20 Discharge Disposition: Home, Self-Care 01 Condition: Stable - Referral to Home Health Primary Care Physician: PCP None - Patient Instructions Diet: Heart Healthy Diet Showering/Bathing: December Shower Notify Provider of: Fever, Increased Pain, Swelling and Redness, Drainage, Nausea and/or Vomiting - Discharge Plan Prescriptions/Med Rec: Mupirocin Cream [Bactroban Crm] 30 gm TP DAILY 5 Days #1 tube Sulfamethoxazole/Trimethoprim [Bactrim Ds Tablet] 2 each PO BID 5 Days #10 tablet Home Medications: Home Meds Permethrin [Permethrin 5% Cream] 60 gm TP DAILY 02/04/20 [History] Mupirocin Cream [Bactroban Crm] 30 gm TP DAILY 5 Days #1 tube 02/07/20 [Rx] Sulfamethoxazole/Trimethoprim [Bactrim Ds Tablet] 2 each PO BID 5 Days #10 tablet 02/07/20 [Rx] diphenhydrAMINE [Benadryl] 25 mg PO Q6H PRN cap 02/07/20 [Rx] Oxygen Therapy Mode: Room Air Patient Handouts: Bedbugs, [id number], Cellulitis, Adult, [id number], Sulfamethoxazole; Trimethoprim, SMX-TMP tablets Referrals: Little Anand NP [Nurse Practitioner] - 02/10/20 11:00 am - Discharge Summary/Plan Comment DC Time >30 min.: No - Patient Data Vitals - Most Recent: Last Vital Signs Temp 98.8 F 02/07/20 11:35 Pulse 100 02/07/20 11:35 Resp 17 02/07/20 11:35 BP 146/97 H 02/07/20 11:35 Pulse Ox 96 02/07/20 11:35 Weight - Most Recent: 113.398 kg I&O - Last 24 hours: Intake & Output 02/06/20 02/07/20 02/07/20 22:59 06:59 14:59 Intake Total 1325 500 Output Total 950 750 Balance 375 -250 Lab Results - Last 24 hrs: Laboratory Results - last 24 hr 02/06/20 02/07/20 02/07/20 Range/Units 15:35 06:05 06:05 WBC 8.29 (4.0-11.0) K/uL RBC 5.48 (4.50-5.90) M/uL Hgb 16.9 (13.0-17.0) g/dL Hct 50.4 H (38.0-50.0) % MCV 92.0 (80.0-98.0) fL MCH 30.8 (27.0-32.0) pg MCHC 33.5 (31.0-37.0) g/dL RDW Std Deviation 46.4 (28.0-62.0) fl RDW Coeff of Karlie 14 (11.0-15.0) % Plt Count 166 (150-400) K/uL MPV 9.20 (7.40-12.00) fL Neut % (Auto) 66.7 (48.0-80.0) % Lymph % (Auto) 18.6 (16.0-40.0) % [place] % (Auto) 9.2 (0.0-15.0) % Eos % (Auto) 5.3 (0.0-7.0) % Baso % (Auto) 0.2 (0.0-1.5) % Neut # (Auto) 5.5 (1.4-5.7) K/uL Lymph # (Auto) 1.5 (0.6-2.4) K/uL [place] # (Auto) 0.8 (0.0-0.8) K/uL Eos # (Auto) 0.4 (0.0-0.7) K/uL Baso # (Auto) 0.0 (0.0-0.1) K/uL Nucleated RBC % 0.0 /100WBC Nucleated RBCs # 0 K/uL Sodium 143 (136-148) mmol/L Potassium 4.0 (3.5-5.1) mmol/L Chloride 106 (98-107) mmol/L Carbon Dioxide 31.3 (21.0-32.0) mmol/L BUN 12 (7.0-18.0) mg/dL Creatinine 1.8 H (0.8-1.3) mg/dL Est Cr Clr Drug Dosing 54.07 mL/min Estimated GFR (MDRD) 41.2 ml/min Glucose 100 (74-106) mg/dL Calcium 8.0 L (8.5-10.1) mg/dL Phosphorus 3.1 (2.6-4.7) mg/dL Magnesium 1.7 L (1.8-2.4) mg/dL Vancomycin Trough 19.0 H (5.0-10.0) ug/mL CARLOS Results - Last 24 hrs: Microbiology 02/04/20 17:22 Aerobic Blood Culture - Preliminary Blood - Venous - Lab Draw NO GROWTH AFTER 2 DAYS Anaerobic Blood Culture - Preliminary NO GROWTH AFTER 2 DAYS 02/04/20 17:12 Aerobic Blood Culture - Preliminary Blood - Venous NO GROWTH AFTER 2 DAYS Anaerobic Blood Culture - Preliminary NO GROWTH AFTER 2 DAYS Med Orders - Current: Current Medications Diphenhydramine HCl (Benadryl) 25 mg PO Q6H PRN PRN Reason: Itching Last Admin: 02/07/20 07:55 Dose: 25 mg Heparin Sodium (Porcine) (Heparin Sodium) 5,000 units SUBCUT BID [facility] Last Admin: 02/07/20 09:41 Dose: 5,000 units Vancomycin HCl 1.25 gm/ Sodium (Chloride) 250 mls @ 166.667 mls/hr IV Q12H [facility] Last Admin: 02/07/20 07:51 Dose: 166.667 mls/hr Omeprazole (Omeprazole) 20 mg PO BIDAC [facility] Last Admin: 02/07/20 06:38 Dose: 20 mg Ondansetron HCl (Zofran) 4 mg IVPUSH Q6H PRN PRN Reason: Nausea/Vomiting Sodium Chloride (Saline Flush) 10 ml FLUSH ASDIRECTED PRN PRN Reason: Keep Vein Open Last Admin: 02/04/20 17:26 Dose: 10 ml Sodium Chloride (Saline Flush) 2.5 ml FLUSH ASDIRECTED PRN PRN Reason: Keep Vein Open Last Admin: 02/04/20 17:26 Dose: 2.5 ml Vancomycin HCl (Pharmacy To Dose - Vancomycin) 0 dose .XX ASDIRECTED [facility] Discontinued Medications Sodium Chloride (Normal Saline) 1,000 mls @ 999 mls/hr IV STAT ONE Stop: 02/04/20 18:09 Last Admin: 02/05/20 21:51 Dose: 999 mls/hr Cefazolin Sodium/Dextrose 1 gm (/ Premix) 50 mls @ 100 mls/hr IV ONETIME ONE Stop: 02/04/20 17:56 Last Admin: 02/04/20 17:39 Dose: 100 mls/hr Vancomycin HCl 1 gm/ Sodium (Chloride) 250 mls @ 166 mls/hr IV ONETIME ONE Stop: 02/04/20 18:57 Last Admin: 02/04/20 18:16 Dose: 166 mls/hr Sodium Chloride (Normal Saline) 1,000 mls @ 125 mls/hr IV STAT ONE Stop: 02/05/20 01:43 Last Admin: 02/04/20 18:16 Dose: 125 mls/hr Piperacillin Sod/Tazobactam (Sod 3.375 gm/ Sodium Chloride) 50 mls @ 100 mls/ hr IV Q6H [facility] Last Admin: 02/04/20 20:29 Dose: 100 mls/hr Vancomycin HCl 1.25 gm/ Sodium (Chloride) 250 mls @ 166.667 mls/hr IV Q8H [facility] Last Admin: 02/06/20 22:25 Dose: Not Given Piperacillin Sod/Tazobactam (Sod 3.375 gm/ Sodium Chloride) 50 mls @ 100 mls/ hr IV Q6H [facility] Last Admin: 02/06/20 09:55 Dose: 100 mls/hr Sodium Chloride (Normal Saline) 1,000 mls @ 100 mls/hr IV STAT ONE Stop: 02/05/20 19:27 Last Admin: 02/05/20 10:06 Dose: 100 mls/hr Lactated Ringer's (Ringers, Lactated) 1,000 mls @ 125 mls/hr IV ASDIRECTED [facility] Last Admin: 02/07/20 07:46 Dose: 125 mls/hr Magnesium Sulfate 2 gm/ Premix 50 mls @ 50 mls/hr IV ONETIME ONE Stop: 02/07/20 08:37 Last Admin: 02/07/20 09:29 Dose: 50 mls/hr Ondansetron HCl (Zofran) 8 mg IVPUSH ONETIME ONE Stop: 02/05/20 09:12 Last Admin: 02/05/20 10:10 Dose: 8 mg <Diallo Tellez - Last Filed: 02/07/20 23:49> Discharge Summary - Hospital Course Free Text/Narrative:: I have seen and evaluated the patient and agree with the residents note unless specified in my note. - Referral to Home Health Primary Care Physician: PCP None - Discharge Diagnosis/Problem(s) (1) Bilateral lower leg cellulitis SNOMED Code(s): 572492536 ICD Code: L03.116 - CELLULITIS OF LEFT LOWER LIMB; L03.115 - CELLULITIS OF RIGHT LOWER LIMB Status: Acute - Patient Data Vitals - Most Recent: Last Vital Signs Temp 37 C 02/07/20 15:44 Pulse 98 02/07/20 15:44 Resp 18 02/07/20 15:44 BP 145/82 H 02/07/20 15:44 Pulse Ox 97 02/07/20 15:44 I&O - Last 24 hours: Intake & Output 02/07/20 02/07/20 02/08/20 14:59 22:59 06:59 Intake Total 537 750 Output Total 1100 Balance 537 -350 Lab Results - Last 24 hrs: Laboratory Results - last 24 hr 02/07/20 02/07/20 Range/Units 06:05 06:05 WBC 8.29 (4.0-11.0) K/uL RBC 5.48 (4.50-5.90) M/uL Hgb 16.9 (13.0-17.0) g/dL Hct 50.4 H (38.0-50.0) % MCV 92.0 (80.0-98.0) fL MCH 30.8 (27.0-32.0) pg MCHC 33.5 (31.0-37.0) g/dL RDW Std Deviation 46.4 (28.0-62.0) fl RDW Coeff of Karlie 14 (11.0-15.0) % Plt Count 166 (150-400) K/uL MPV 9.20 (7.40-12.00) fL Neut % (Auto) 66.7 (48.0-80.0) % Lymph % (Auto) 18.6 (16.0-40.0) % [place] % (Auto) 9.2 (0.0-15.0) % Eos % (Auto) 5.3 (0.0-7.0) % Baso % (Auto) 0.2 (0.0-1.5) % Neut # (Auto) 5.5 (1.4-5.7) K/uL Lymph # (Auto) 1.5 (0.6-2.4) K/uL [place] # (Auto) 0.8 (0.0-0.8) K/uL Eos # (Auto) 0.4 (0.0-0.7) K/uL Baso # (Auto) 0.0 (0.0-0.1) K/uL Nucleated RBC % 0.0 /100WBC Nucleated RBCs # 0 K/uL Sodium 143 (136-148) mmol/L Potassium 4.0 (3.5-5.1) mmol/L Chloride 106 (98-107) mmol/L Carbon Dioxide 31.3 (21.0-32.0) mmol/L BUN 12 (7.0-18.0) mg/dL Creatinine 1.8 H (0.8-1.3) mg/dL Est Cr Clr Drug Dosing 54.07 mL/min Estimated GFR (MDRD) 41.2 ml/min Glucose 100 (74-106) mg/dL Calcium 8.0 L (8.5-10.1) mg/dL Phosphorus 3.1 (2.6-4.7) mg/dL Magnesium 1.7 L (1.8-2.4) mg/dL CARLOS Results - Last 24 hrs: Microbiology 02/04/20 17:22 Aerobic Blood Culture - Preliminary Blood - Venous - Lab Draw NO GROWTH AFTER 3 DAYS Anaerobic Blood Culture - Preliminary NO GROWTH AFTER 3 DAYS 02/04/20 17:12 Aerobic Blood Culture - Preliminary Blood - Venous NO GROWTH AFTER 3 DAYS Anaerobic Blood Culture - Preliminary NO GROWTH AFTER 3 DAYS Med Orders - Current: Current Medications Discontinued Medications Diphenhydramine HCl (Benadryl) 25 mg PO Q6H PRN PRN Reason: Itching Last Admin: 02/07/20 07:55 Dose: 25 mg Heparin Sodium (Porcine) (Heparin Sodium) 5,000 units SUBCUT BID [facility] Last Admin: 02/07/20 09:41 Dose: 5,000 units Sodium Chloride (Normal Saline) 1,000 mls @ 999 mls/hr IV STAT ONE Stop: 02/04/20 18:09 Last Admin: 02/05/20 21:51 Dose: 999 mls/hr Cefazolin Sodium/Dextrose 1 gm (/ Premix) 50 mls @ 100 mls/hr IV ONETIME ONE Stop: 02/04/20 17:56 Last Admin: 02/04/20 17:39 Dose: 100 mls/hr Vancomycin HCl 1 gm/ Sodium (Chloride) 250 mls @ 166 mls/hr IV ONETIME ONE Stop: 02/04/20 18:57 Last Admin: 02/04/20 18:16 Dose: 166 mls/hr Sodium Chloride (Normal Saline) 1,000 mls @ 125 mls/hr IV STAT ONE Stop: 02/05/20 01:43 Last Admin: 02/04/20 18:16 Dose: 125 mls/hr Piperacillin Sod/Tazobactam (Sod 3.375 gm/ Sodium Chloride) 50 mls @ 100 mls/ hr IV Q6H [facility] Last Admin: 02/04/20 20:29 Dose: 100 mls/hr Vancomycin HCl 1.25 gm/ Sodium (Chloride) 250 mls @ 166.667 mls/hr IV Q8H [facility] Last Admin: 02/06/20 22:25 Dose: Not Given Piperacillin Sod/Tazobactam (Sod 3.375 gm/ Sodium Chloride) 50 mls @ 100 mls/ hr IV Q6H [facility] Last Admin: 02/06/20 09:55 Dose: 100 mls/hr Sodium Chloride (Normal Saline) 1,000 mls @ 100 mls/hr IV STAT ONE Stop: 02/05/20 19:27 Last Admin: 02/05/20 10:06 Dose: 100 mls/hr Lactated Ringer's (Ringers, Lactated) 1,000 mls @ 125 mls/hr IV ASDIRECTED [facility] Last Admin: 02/07/20 07:46 Dose: 125 mls/hr Vancomycin HCl 1.25 gm/ Sodium (Chloride) 250 mls @ 166.667 mls/hr IV Q12H [facility] Last Admin: 02/07/20 07:51 Dose: 166.667 mls/hr Magnesium Sulfate 2 gm/ Premix 50 mls @ 50 mls/hr IV ONETIME ONE Stop: 02/07/20 08:37 Last Admin: 02/07/20 09:29 Dose: 50 mls/hr Omeprazole (Omeprazole) 20 mg PO BIDAC [facility] Last Admin: 02/07/20 06:38 Dose: 20 mg Ondansetron HCl (Zofran) 8 mg IVPUSH ONETIME ONE Stop: 02/05/20 09:12 Last Admin: 02/05/20 10:10 Dose: 8 mg Ondansetron HCl (Zofran) 4 mg IVPUSH Q6H PRN PRN Reason: Nausea/Vomiting Sodium Chloride (Saline Flush) 10 ml FLUSH ASDIRECTED PRN PRN Reason: Keep Vein Open Last Admin: 02/04/20 17:26 Dose: 10 ml Sodium Chloride (Saline Flush) 2.5 ml FLUSH ASDIRECTED PRN PRN Reason: Keep Vein Open Last Admin: 02/04/20 17:26 Dose: 2.5 ml Vancomycin HCl (Pharmacy To Dose - Vancomycin) 0 dose .XX ASDIRECTED [facility]
== END 2020-02-07 16:03 | disposition home or self-care (01) | DRG 385 ==
LOC: MW.ED 16:42 → MW.MS 18:06
PROVIDERS: ADMIT Internal Medicine; ATTEND Internal Medicine
DX: S70.362A Insect bite (nonvenomous), left thigh, initial encounter (principal); S70.361A Insect bite (nonvenomous), right thigh, initial encounter; L03.116 Cellulitis of left lower limb; L03.115 Cellulitis of right lower limb; L01.00 Impetigo, unspecified; W57.XXXA Bitten or stung by nonvenomous insect and other nonvenomous arthropods, initial encounter; Z79.899 Other long term (current) drug therapy; Z90.89 Acquired absence of other organs; Z98.890 Other specified postprocedural states
CPT/HCPCS: 36415; 72192; 72192-26; 73700-26-LT; 73700-LT; 80048; 80053; 80202; 83605; 83735; 84100; 85025; 87040; 93005; 96365; 96367; 99284; 99284-25; A9270-GY; J0690; J1644; J2405; J2543; J3370; J3475; J7030; J7050; J7120

== ENCOUNTER 2020-02-09 15:55 | Emergency (ER) | payer BC, OTHER ==
--- NOTE | 2020-02-09 16:14 | EDM.PDOC ---
ED HPI GENERAL MEDICAL PROBLEM - General Chief Complaint: Respiratory Problem Stated Complaint: SOB/CHILLS Time Seen by Provider: 02/09/20 16:20 Source of Information: Reports: Patient History Limitations: Reports: No Limitations - History of Present Illness INITIAL COMMENTS - FREE TEXT/NARRATIVE: HISTORY AND PHYSICAL: History of present illness: Patient is a 44-year-old male who presents to the emergency room with complaints of generalized malaise, shortness of breath, chest pressure, low- grade fever x 4 days. I initially saw this patient last week for failed outpatient therapy for cellulitis and impetigo type lesions. Patient was admitted on 02/04/2020 and discharged on 02/07/2020. During his hospital stay he received IV antibiotics and was discharged to home with Bactrim DS. He states his cellulitis to his bilateral lower extremities appears to have improved ( improved redness, swelling and drainage from the areas). Since being hospitalized he has felt increasingly short of breath even with minimal ambulation, much worse today. Describes a pressure to his chest, stating it feels "full". This chest "fullness" does not radiate - states his sister thinks he has "fluid overload" although he has no distal extremity edema. He has been attempting to drink plenty of fluids and get adequate rest. Has had some loose stools although does not describe it as diarrhea. Patient denies headache, change in vision, syncope or near syncope. Denies any back pain, neck pain/stiffness, abdominal pain, nausea, vomiting, constipation or dysuria. Review of systems: As per history of present illness and below otherwise all systems reviewed and negative. Past medical history: As per history of present illness and as reviewed below otherwise noncontributory. Surgical history: As per history of present illness and as reviewed below otherwise noncontributory. Social history: See social history for further information Family history: As per history of present illness and as reviewed below otherwise noncontributory. Physical exam: General: Well-developed and well-nourished 44-year-old male. Alert and oriented. Nontoxic-appearing and in no acute distress. HEENT: Atraumatic, normocephalic, pupils equal and reactive bilaterally, negative for conjunctival pallor or scleral icterus, mucous membranes moist, trachea midline. No drooling or trismus noted. No meningeal signs. No hot potato voice noted. Lungs: Clear to auscultation, breath sounds equal bilaterally, chest nontender. Heart: S1S2, tachycardia with regular rhythm without overt murmur Abdomen: Soft, nondistended, nontender. Negative for masses or hepatosplenomegaly. Negative for costovertebral tenderness. Pelvis: Stable nontender. Skin: Erythema to bilateral mid thighs extending into proximal calf medially. Scabbed and dry skin noted (no drainage or blistering). Otherwise skin is intact, warm, dry. No lesions or rashes noted. Extremities: Moves all extremities per self without difficulty or deficits, negative for cords or calf pain. Neurovascular unremarkable. Neuro: Awake, alert, oriented. Cranial nerves II through XII unremarkable. Cerebellum unremarkable. Motor and sensory unremarkable throughout. Exam nonfocal. Notes: Patient is tachycardic at rest. We will do a sepsis work-up along with screening him for COVID since he recently was admitted to the hospital. Patient's EKG shows a sinus tachycardia with a rate of 113, no ST elevation. We did receive 2 critical lab values of his troponin and d-dimer. Patient was made aware of these values and the need for transfer to a higher level of care. He is agreeable to plan of care. I did call [facility] in [place], Dr Woodson, the ED physician is agreeable to accepting this patient. At this time he is agreeable that heparin bolus and infusion should be given. I will not CTA his chest at this time, as it will delay transfer and care. Patient will be flown via [employer] flight. Diagnostics: CBC, CMP, d-dimer, troponin, lactate with reflex, blood cultures x2, COVID, chest x-ray Therapeutics: SL x2, Aspirin, heparin bolus, heparin infusion Impression: NSTEMI Elevated D. Dimer Plan: Transfer to [facility] Definitive disposition and diagnosis as appropriate pending reevaluation and review of above. - Related Data Allergies Allergy/AdvReac Type Severity Reaction Status Date / Time cat dander Allergy Other Verified 02/09/20 16:17 grass pollen Allergy Other Verified 02/09/20 16:17 mold Allergy Other Verified 02/09/20 16:17 Penicillins Allergy Other Verified 02/09/20 16:17 Home Meds: Home Meds Permethrin [Permethrin 5% Cream] 60 gm TP DAILY 02/04/20 [History] Mupirocin Cream [Bactroban Crm] 30 gm TP DAILY 5 Days #1 tube 02/07/20 [Rx] Sulfamethoxazole/Trimethoprim [Bactrim Ds Tablet] 2 each PO BID 5 Days #10 tablet 02/07/20 [Rx] diphenhydrAMINE [Benadryl] 25 mg PO Q6H PRN cap 02/07/20 [Rx] Past Medical History - Infectious Disease History Infectious Disease History: Reports: Chicken Pox - Past Surgical History HEENT Surgical History: Reports: Adenoidectomy, Tonsillectomy Musculoskeletal Surgical History: Reports: Shoulder Surgery Other Musculoskeletal Surgeries/Procedures:: Achellies tendon repair Social & Family History - Family History Family Medical History: Noncontributory ED ROS GENERAL - Review of Systems Review Of Systems: Comprehensive ROS is negative, except as noted in HPI. ED EXAM, GENERAL - Physical Exam Exam: See Below (See dictation) Course - Vital Signs Last Recorded V/S: Last Vital Signs Temp 98.3 F 02/09/20 18:13 Pulse 117 H 02/09/20 17:59 Resp 17 02/09/20 18:13 BP 138/95 H 02/09/20 18:13 Pulse Ox 96 02/09/20 17:59 - Orders/Labs/Meds Orders: Active Orders 24 hr Category Date Time Status EKG Documentation Completion [RC] STAT Care 02/09/20 17:28 Active CULTURE BLOOD [BC] Stat Lab 02/09/20 16:34 Received CULTURE BLOOD [BC] Stat Lab 02/09/20 17:19 Received Heparin Sod,Pork In 0.45% Nacl [Heparin-1/2Ns 25,000 Med 02/09/20 17:45 Active Units/500] 25,000 unit in 500 ml IV TITRATE Sodium Chloride 0.9% [Saline Flush] Med 02/09/20 16:23 Active 10 ml FLUSH ASDIRECTED PRN Sodium Chloride 0.9% [Saline Flush] Med 02/09/20 16:23 Active 2.5 ml FLUSH ASDIRECTED PRN Blood Culture x2 Reflex Set [OM.PC] Stat Oth 02/09/20 16:23 Ordered Saline Lock Insert [OM.PC] Stat Oth 02/09/20 16:23 Ordered Medication Orders Heparin Sodium/Sodium Chloride (Heparin-1/2ns 25,000 Units/500) 25,000 unit in 500 mls @ 27.216 mls/hr IV TITRATE DANNIELLE; Protocol Last Admin: 02/09/20 17:57 Dose: 12 units/kg/hr, 27.216 mls/hr Sodium Chloride (Saline Flush) 10 ml FLUSH ASDIRECTED PRN PRN Reason: Keep Vein Open Sodium Chloride (Saline Flush) 2.5 ml FLUSH ASDIRECTED PRN PRN Reason: Keep Vein Open Labs: Laboratory Tests 02/09/20 02/09/20 02/09/20 Range/Units 16:34 16:34 16:34 WBC 10.04 (4.0-11.0) K/uL RBC 5.05 (4.50-5.90) M/uL Hgb 15.8 (13.0-17.0) g/dL Hct 45.7 (38.0-50.0) % MCV 90.5 (80.0-98.0) fL MCH 31.3 (27.0-32.0) pg MCHC 34.6 (31.0-37.0) g/dL RDW Std Deviation 44.6 (28.0-62.0) fl RDW Coeff of Karlie 14 (11.0-15.0) % Plt Count 150 (150-400) K/uL MPV 9.30 (7.40-12.00) fL Neut % (Auto) 86.6 H (48.0-80.0) % Lymph % (Auto) 3.9 L (16.0-40.0) % [place] % (Auto) 7.2 (0.0-15.0) % Eos % (Auto) 2.1 (0.0-7.0) % Baso % (Auto) 0.2 (0.0-1.5) % Neut # (Auto) 8.7 H (1.4-5.7) K/uL Lymph # (Auto) 0.4 L (0.6-2.4) K/uL [place] # (Auto) 0.7 (0.0-0.8) K/uL Eos # (Auto) 0.2 (0.0-0.7) K/uL Baso # (Auto) 0.0 (0.0-0.1) K/uL Nucleated RBC % 0.0 /100WBC Nucleated RBCs # 0 K/uL INR APTT (18.6-31.3) SEC D-Dimer, Quantitative 4.30 H (0.0-0.50) mg/L FEU Lactate (0.20-2.00) mmol/L Sodium 138 (136-148) mmol/L Potassium 3.3 L (3.5-5.1) mmol/L Chloride 101 (98-107) mmol/L Carbon Dioxide 28.5 (21.0-32.0) mmol/L BUN 13 (7.0-18.0) mg/dL Creatinine 1.7 H (0.8-1.3) mg/dL Est Cr Clr Drug Dosing 57.25 mL/min Estimated GFR (MDRD) 44.0 ml/min Glucose 112 H (74-106) mg/dL Calcium 8.5 (8.5-10.1) mg/dL Total Bilirubin 0.4 (0.2-1.0) mg/dL AST 42 H (15-37) IU/L ALT 46 (14-63) IU/L Alkaline Phosphatase 102 (46-116) U/L Troponin I 1.970 H* (0.000-0.056) ng/mL Total Protein 6.0 L (6.4-8.2) g/dL Albumin 3.0 L (3.4-5.0) g/dL Globulin 3.0 (2.6-4.0) g/dL Albumin/Globulin Ratio 1.0 (0.9-1.6) SARS-CoV-2 RNA (RT-PCR) (NEGATIVE) 02/09/20 02/09/20 02/09/20 Range/Units 16:34 16:34 16:44 WBC (4.0-11.0) K/uL RBC (4.50-5.90) M/uL Hgb (13.0-17.0) g/dL Hct (38.0-50.0) % MCV (80.0-98.0) fL MCH (27.0-32.0) pg MCHC (31.0-37.0) g/dL RDW Std Deviation (28.0-62.0) fl RDW Coeff of Karlie (11.0-15.0) % Plt Count (150-400) K/uL MPV (7.40-12.00) fL Neut % (Auto) (48.0-80.0) % Lymph % (Auto) (16.0-40.0) % [place] % (Auto) (0.0-15.0) % Eos % (Auto) (0.0-7.0) % Baso % (Auto) (0.0-1.5) % Neut # (Auto) (1.4-5.7) K/uL Lymph # (Auto) (0.6-2.4) K/uL [place] # (Auto) (0.0-0.8) K/uL Eos # (Auto) (0.0-0.7) K/uL Baso # (Auto) (0.0-0.1) K/uL Nucleated RBC % /100WBC Nucleated RBCs # K/uL INR 0.99 APTT 28.0 (18.6-31.3) SEC D-Dimer, Quantitative (0.0-0.50) mg/L FEU Lactate 1.1 (0.20-2.00) mmol/L Sodium (136-148) mmol/L Potassium (3.5-5.1) mmol/L Chloride (98-107) mmol/L Carbon Dioxide (21.0-32.0) mmol/L BUN (7.0-18.0) mg/dL Creatinine (0.8-1.3) mg/dL Est Cr Clr Drug Dosing mL/min Estimated GFR (MDRD) ml/min Glucose (74-106) mg/dL Calcium (8.5-10.1) mg/dL Total Bilirubin (0.2-1.0) mg/dL AST (15-37) IU/L ALT (14-63) IU/L Alkaline Phosphatase (46-116) U/L Troponin I (0.000-0.056) ng/mL Total Protein (6.4-8.2) g/dL Albumin (3.4-5.0) g/dL Globulin (2.6-4.0) g/dL Albumin/Globulin Ratio (0.9-1.6) SARS-CoV-2 RNA (RT-PCR) NEGATIVE (NEGATIVE) Meds: Medications Generic Name Dose Route Start Last Admin Trade Name Freq PRN Reason Stop Dose Admin Heparin Sodium/Sodium Chloride 25,000 unit in 500 mls @ 27.216 mls/hr 17:45 02/09/20 17:57 Heparin-1/2ns 25,000 Units/500 IV 12 units/kg/hr TITRATE DANNIELLE 27.216 mls/hr Administration Protocol 12 UNITS/KG/HR Sodium Chloride 10 ml 02/09/20 16:23 Saline Flush FLUSH ASDIRECTED PRN Keep Vein Open Sodium Chloride 2.5 ml 02/09/20 16:23 Saline Flush FLUSH ASDIRECTED PRN Keep Vein Open Discontinued Medications Generic Name Dose Route Start Last Admin Trade Name Freq PRN Reason Stop Dose Admin Aspirin 324 mg 02/09/20 17:29 02/09/20 17:37 Aspirin PO 02/09/20 17:30 324 mg ONETIME ONE Administration Heparin Sodium (Porcine) 5,000 units 02/09/20 17:40 02/09/20 17:56 Heparin Sodium IVPUSH 02/09/20 17:41 5,000 units ONETIME ONE Administration Departure - Departure Time of Disposition: 18:46 Disposition: DC/Tfer to Acute Hospital 02 Clinical Impression: NSTEMI (non-ST elevated myocardial infarction), Elevated d-dimer - Discharge Information Referrals: Swami Austin Jama MD [Primary Care Provider] - Forms: ED Department Discharge Sepsis Event Note (ED) - Focused Exam Vital Signs: Vital Signs Temp Pulse Resp BP Pulse Ox 02/09/20 18:13 98.3 F 17 138/95 H 02/09/20 17:59 117 H 18 128/88 96 02/09/20 16:13 99.8 F 132 H 20 133/66 95 - My Orders Last 24 Hours: My Active Orders 02/09/20 16:23 Sodium Chloride 0.9% [Saline Flush] 10 ml FLUSH ASDIRECTED PRN Sodium Chloride 0.9% [Saline Flush] 2.5 ml FLUSH ASDIRECTED PRN Blood Culture x2 Reflex Set [OM.PC] Stat Saline Lock Insert [OM.PC] Stat 02/09/20 16:34 CULTURE BLOOD [BC] Stat 02/09/20 17:19 CULTURE BLOOD [BC] Stat 02/09/20 17:28 EKG Documentation Completion [RC] STAT 02/09/20 17:45 Heparin Sod,Pork In 0.45% Nacl [Heparin-1/2Ns 25,000 Units/500] 25,000 unit in 500 ml IV TITRATE - Assessment/Plan Last 24 Hours: My Active Orders 02/09/20 16:23 Sodium Chloride 0.9% [Saline Flush] 10 ml FLUSH ASDIRECTED PRN Sodium Chloride 0.9% [Saline Flush] 2.5 ml FLUSH ASDIRECTED PRN Blood Culture x2 Reflex Set [OM.PC] Stat Saline Lock Insert [OM.PC] Stat 02/09/20 16:34 CULTURE BLOOD [BC] Stat 02/09/20 17:19 CULTURE BLOOD [BC] Stat 02/09/20 17:28 EKG Documentation Completion [RC] STAT 02/09/20 17:45 Heparin Sod,Pork In 0.45% Nacl [Heparin-1/2Ns 25,000 Units/500] 25,000 unit in 500 ml IV TITRATE
[2020-02-09] MEDS ORDERED: Sodium Chloride 0.9% 10 ML Syringe FLUSH PRN (16:23)
[2020-02-09] MEDS ORDERED: Sodium Chloride 0.9% 2.5 ML Syringe FLUSH PRN (16:23)
--- NOTE | 2020-02-09 17:04 | CR ---
Chest: Portable view of the chest was obtained. Comparison no prior chest imaging is available. Heart size and mediastinum are normal. Lungs are clear with no acute parenchymal change. Bony structures are grossly intact. Impression: 1. Nothing acute is seen on portable chest x-ray. Diagnostic code #1 This report was dictated in MDT
[2020-02-09 17:26] LABS: CARBON DIOXIDE,CO2 28.5 mmol/L (21.0-32.0); POTASSIUM,K 3.3 mmol/L (3.5-5.1)
[2020-02-09] MEDS ORDERED: Aspirin 81 MG Tab.Chew PO ONE (17:29)
[2020-02-09] MEDS ORDERED: Heparin Sodium 5,000 Units/ML Vial IVPUSH ONE (17:40)
[2020-02-09] MEDS ORDERED: Heparin Sod,Pork In 0.45% Nacl 25,000 UNIT/500 ML IV.SOLN IV SCH (17:45)
== END 2020-02-09 18:40 ==
LOC: MW.ED 15:55
DX: I21.4 Non-ST elevation (NSTEMI) myocardial infarction (principal); R79.1 Abnormal coagulation profile; Z91.09 Other allergy status, other than to drugs and biological substances; Z88.0 Allergy status to penicillin
CPT/HCPCS: 36415; 71045; 80053; 83605; 84484; 85025; 85379; 85610; 85730; 87040; 87635; 93005; 96365; 99285; A9270; J1644; 99284; U0002